=== PATIENT | female | born 1960 | race Caucasian/White ===

== ENCOUNTER 2016-06-18 15:11 | Inpatient (IN) | payer BC ==
[~2016-06-18] VITALS: Ht 172.7 cm; Wt 109.8 kg
[2016-06-18] MEDS ORDERED: IV NS 0.9% 500 ML BAG IV ONE (15:30)
[2016-06-18] MEDS ORDERED: IV NS 0.9% 500 ML IV ONE (15:34)
[2016-06-18 15:51] LABS: BASOPHILS # (AUTO) 0.2 /CMM (0.0-0.2); BASOPHILS % (AUTO) 2.8 % (0.0-2.0); EOSINOPHILS % (AUTO) 0.4 % (0.0-6.0); HEMATOCRIT 42 % (33-45); HEMOGLOBIN 13.9 g/dL (11.5-14.8); LYMPHOCYTES # (AUTO) 1.4 /CMM (0.8-4.8); LYMPHOCYTES % (AUTO) 18.6 % (20.0-44.0); MEAN CORPUSCULAR HEMOGLOBIN 32 PG (26.0-33.0); MEAN CORPUSCULAR HGB CONC 33 g/dl (31.0-36.0); MEAN CORPUSCULAR VOLUME 98 fL (82-100); MONOCYTES # (AUTO) 0.6 /CMM (0.1-1.30); MONOCYTES % (AUTO) 7.5 % (2.0-12.0); NEUTROPHILS # (AUTO) 5.3 /CMM (1.8-8.9); NEUTROPHILS % (AUTO) 70.7 % (43.0-81.0); PLATELET COUNT (AUTO) 184 /CMM (150-450); RDW COEFFICIENT OF VARIATION 16.2 (11.5-15.0); RED BLOOD CELL COUNT(AUTO) 4.32 MIL/uL (4.0-5.2); WHITE BLOOD COUNT (AUTO) 7.5 K/uL (4.3-11.0)
[2016-06-18 16:02] LABS: CALCIUM, SERUM 8.2 mg/dL (8.5-10.1); CARBON DIOXIDE 33 mmol/L (21-32); CHLORIDE 90 mmol/L (98-107); CREATININE 1.3 mg/dL (0.6-1.3); GFR 42 mL/min (>60); GLUCOSE 129 mg/dL (74-106); SODIUM SERUM 136 mmol/L (136-145); UREA NITROGEN, BLOOD 12 mg/dL (7-18)
[2016-06-18 16:05] LABS: INR 1.12 (0.87-1.13); PROTHROMBIN TIME 11.8 SECS (9.5-12.7)
[2016-06-18 16:09] LABS: TROPONIN I < 0.017 ng/mL (0.00-0.056)
[2016-06-18 16:11] LABS: POTASSIUM 2.2 mmol/L (3.5-5.1)
[2016-06-18] MEDS ORDERED: IV SET PRIMARY PUMP SET 1 EA INFUS.SET MC ONE ×2 (16:24→21:16)
[2016-06-18] MEDS ORDERED: POTASSIUM CHLORIDE 20 MEQ TAB.PRT.SR PO ONE ×2 (16:24→16:30)
[2016-06-18] MEDS ORDERED: POTASSIUM CL. PREMIX PERIPHER. 100 ML ONE (16:24)
[2016-06-18] MEDS: POTASSIUM CL. PREMIX PERIPHER. 50 ML IV SCH ×2 (16:34→17:15)
[2016-06-18] MEDS ORDERED: IV NS 0.9% 1,000 ML IV PRN (16:52)
[2016-06-18] MEDS ORDERED: ZOLPIDEM TARTRATE 5 MG TABLET PO PRN (17:00)
[2016-06-18] MEDS ORDERED: LORAZEPAM INJ 2 MG/ML VIAL IV PRN (17:00)
[2016-06-18] MEDS ORDERED: MAG HYDROX/AL HYDROX/SIMETH 30 ML UDC PO PRN ×2 (17:00→19:45)
[2016-06-18] MEDS ORDERED: ACETAMINOPHEN 325 MG TABLET PO PRN ×2 (17:00→19:45)
[2016-06-18] MEDS ORDERED: HYDROCODONE/APAP 5/325MG 1 EACH TABLET PO PRN ×2 (17:00→19:45)
[2016-06-18] MEDS ORDERED: Z GUARD REMEDY 2 OZ OINT TP PRN ×2 (17:00→19:45)
[2016-06-18] MEDS ORDERED: MAGNESIUM HYDROXIDE 30 ML UDC PO PRN ×2 (17:00→19:45)
[2016-06-18] MEDS ORDERED: ONDANSETRON HCL/PF 4 MG/2 ML VIAL IVP PRN ×2 (17:00→19:45)
[2016-06-18] MEDS ORDERED: LORAZEPAM INJ 2 MG/ML VIAL ONE (17:19)
[2016-06-18] MEDS ORDERED: ONDA4TAB5 PO (17:26)
[2016-06-18] MEDS ORDERED: AMLO5TAB2 PO (17:26)
[2016-06-18] MEDS ORDERED: LORAZEPAM INJ 2 MG/ML VIAL IV ONE (17:30)
[2016-06-18] MEDS ORDERED: LEVETIRACETAM (500MG) 500 MG in IV NS 0.9% 100 ML IV SCH (17:30)
[2016-06-18 20:00] VITALS: BP 151/95
[2016-06-18] MEDS: ZOLPIDEM TARTRATE 5 MG TABLET PO PRN (21:23)
[2016-06-18] MEDS: IV NS 0.9% 1,000 ML IV PRN (21:23)
[2016-06-19] VITALS (7 sets, daily range): BP systolic 118–144; BP diastolic 64–90
[2016-06-19] MEDS: IV NS 0.9% 1,000 ML IV PRN ×2 (04:21→23:54)
[2016-06-19 06:19] LABS: CALCIUM, SERUM 7.3 mg/dL (8.5-10.1); CREATININE 0.6 mg/dL (0.6-1.3)
[2016-06-19 06:30] LABS: POTASSIUM 2.6 mmol/L (3.5-5.1)
[2016-06-19] MEDS ORDERED: POTASSIUM CL. PREMIX PERIPHER. 50 ML IV SCH (07:00)
[2016-06-19] MEDS ORDERED: POTASSIUM CHLORIDE 20 MEQ TAB.PRT.SR PO ONE (07:00)
[2016-06-19] MEDS ORDERED: PANTOPRAZOLE 40 MG TABLET.DR PO SCH (07:30)
[2016-06-19] MEDS ORDERED: IV SET PRIMARY PUMP SET 1 EA INFUS.SET MC ONE ×3 (08:33→23:50)
[2016-06-19] MEDS: PANTOPRAZOLE 40 MG TABLET.DR PO SCH (08:43)
[2016-06-19 10:35] LABS: ALBUMIN 2.8 g/dL (3.4-5.0); BILIRUBIN,DIRECT 0.9 mg/dL (0.0-0.2); BILIRUBIN,TOTAL 1.9 mg/dL (0.2-1.0); MAGNESIUM 1.3 mg/dL (1.8-2.4); PHOSPHORUS 2.3 mg/dL (2.5-4.9); TOTAL PROTEIN, SERUM 5.5 g/dL (6.4-8.2)
[2016-06-19 10:41] LABS: TROPONIN I 0.02 ng/mL (0.00-0.056)
[2016-06-19 10:46] LABS: THYROID STIMULATING HORMONE 2.621 uIU/mL (0.358-3.74)
[2016-06-19] MEDS: POTASSIUM CHLORIDE 20 MEQ TAB.PRT.SR PO SCH ×3 (11:02→13:06)
[2016-06-19] MEDS: Potassium Chloride 10 MEQ, LIDOCAINE HCL/PF 1% 1 ML in IV D5W 50 ML IV SCH ×2 (11:53→13:06)
[2016-06-19] MEDS: LORAZEPAM INJ 2 MG/ML VIAL IV PRN ×2 (13:58→20:43)
[2016-06-19] MEDS ORDERED: GADOVERSETAMIDE 5 MMOL/10 ML VIAL IJ ONE (16:32)
[2016-06-19] MEDS ORDERED: K PHOS NEUTRAL 250 MG TABLET PO ONE (17:00)
[2016-06-19] MEDS: ZOLPIDEM TARTRATE 5 MG TABLET PO PRN (21:33)
[2016-06-19] MEDS ORDERED: Magnesium 1GM/D5W 100ML PREMIX PIGGYBACK IV ONE (23:30)
[2016-06-19] MEDS ORDERED: Magnesium 1GM/D5W 100ML PREMIX 200 ML IV ONE (23:35)
[2016-06-19] MEDS ORDERED: SECONDARY IV SET 1 EA INFUS.SET MC ONE (23:52)
[2016-06-20] VITALS: BP 117/81
[2016-06-20] MEDS: LORAZEPAM INJ 2 MG/ML VIAL IV PRN ×3 (03:37→18:39)
[2016-06-20 04:00] VITALS: BP 132/83
[2016-06-20 06:32] LABS: BASOPHILS % (AUTO) 0.2 % (0.0-2.0); EOSINOPHILS # (AUTO) 0.1 /CMM (0.0-0.7); EOSINOPHILS % (AUTO) 1.3 % (0.0-6.0); HEMATOCRIT 33 % (33-45); HEMOGLOBIN 11.1 g/dL (11.5-14.8); LYMPHOCYTES # (AUTO) 1.3 /CMM (0.8-4.8); LYMPHOCYTES % (AUTO) 27.2 % (20.0-44.0); MEAN CORPUSCULAR HEMOGLOBIN 33 PG (26.0-33.0); MEAN CORPUSCULAR HGB CONC 34 g/dl (31.0-36.0); MEAN CORPUSCULAR VOLUME 97 fL (82-100); MONOCYTES # (AUTO) 0.5 /CMM (0.1-1.30); MONOCYTES % (AUTO) 10.2 % (2.0-12.0); NEUTROPHILS # (AUTO) 2.9 /CMM (1.8-8.9); NEUTROPHILS % (AUTO) 61.1 % (43.0-81.0); PLATELET COUNT (AUTO) 102 /CMM (150-450); RDW COEFFICIENT OF VARIATION 17.2 (11.5-15.0); RED BLOOD CELL COUNT(AUTO) 3.39 MIL/uL (4.0-5.2); WHITE BLOOD COUNT (AUTO) 4.7 K/uL (4.3-11.0)
[2016-06-20 06:49] LABS: ALANINE AMINOTRANSFERASE 91 U/L (12-78); ALBUMIN 2.7 g/dL (3.4-5.0); ALKALINE PHOSPHATASE 90 U/L (46-116); ASPARTATE AMINOTRANSFERASE 272 U/L (15-37); CALCIUM, SERUM 7.4 mg/dL (8.5-10.1); CARBON DIOXIDE 33 mmol/L (21-32); CHLORIDE 99 mmol/L (98-107); CREATININE 0.5 mg/dL (0.6-1.3); GFR 128 mL/min (>60); GLUCOSE 90 mg/dL (74-106); MAGNESIUM 1.8 mg/dL (1.8-2.4); PHOSPHORUS 2.5 mg/dL (2.5-4.9); SODIUM SERUM 141 mmol/L (136-145); TOTAL PROTEIN, SERUM 5.5 g/dL (6.4-8.2); UREA NITROGEN, BLOOD 10 mg/dL (7-18)
[2016-06-20 06:50] LABS: TROPONIN I < 0.017 ng/mL (0.00-0.056)
[2016-06-20 07:00] VITALS: BP 140/82
[2016-06-20 07:09] LABS: POTASSIUM 2.3 mmol/L (3.5-5.1)
[2016-06-20 08:00] VITALS: BP 136/75
[2016-06-20] MEDS: PANTOPRAZOLE 40 MG TABLET.DR PO SCH (08:18)
[2016-06-20] MEDS ORDERED: Potassium Chloride 20 MEQ in IV NS 0.9% 1,000 ML IV PRN (09:30)
[2016-06-20] MEDS: POTASSIUM CHLORIDE 20 MEQ TAB.PRT.SR PO SCH ×5 (10:41→15:34)
[2016-06-20 12:00] VITALS: BP 132/78
[2016-06-20 16:00] VITALS: BP 128/83
[2016-06-20] MEDS ORDERED: QUETIAPINE FUMARATE 100 MG TABLET PO SCH (22:00)
[2016-06-21] VITALS: BP 131/65
[2016-06-21 04:00] VITALS: BP 156/84
[2016-06-21] MEDS: LORAZEPAM INJ 2 MG/ML VIAL IV PRN (05:12)
[2016-06-21 07:28] VITALS: BP 138/71
[2016-06-21 07:30] LABS: BASOPHILS % (AUTO) 0.4 % (0.0-2.0); EOSINOPHILS # (AUTO) 0.1 /CMM (0.0-0.7); EOSINOPHILS % (AUTO) 1.1 % (0.0-6.0); HEMATOCRIT 35 % (33-45); HEMOGLOBIN 11.6 g/dL (11.5-14.8); LYMPHOCYTES # (AUTO) 1.4 /CMM (0.8-4.8); MEAN CORPUSCULAR HEMOGLOBIN 33 PG (26.0-33.0); MEAN CORPUSCULAR HGB CONC 34 g/dl (31.0-36.0); MEAN CORPUSCULAR VOLUME 98 fL (82-100); MONOCYTES # (AUTO) 0.7 /CMM (0.1-1.30); MONOCYTES % (AUTO) 11.9 % (2.0-12.0); NEUTROPHILS # (AUTO) 3.5 /CMM (1.8-8.9); NEUTROPHILS % (AUTO) 61.6 % (43.0-81.0); PLATELET COUNT (AUTO) 121 /CMM (150-450); RDW COEFFICIENT OF VARIATION 17.2 (11.5-15.0); RED BLOOD CELL COUNT(AUTO) 3.53 MIL/uL (4.0-5.2); WHITE BLOOD COUNT (AUTO) 5.7 K/uL (4.3-11.0)
[2016-06-21 07:43] LABS: ALBUMIN 2.7 g/dL (3.4-5.0); BILIRUBIN,TOTAL 2.1 mg/dL (0.2-1.0); CREATININE 0.5 mg/dL (0.6-1.3); MAGNESIUM 1.5 mg/dL (1.8-2.4); PHOSPHORUS 2.6 mg/dL (2.5-4.9); POTASSIUM 3.1 mmol/L (3.5-5.1); TOTAL PROTEIN, SERUM 5.9 g/dL (6.4-8.2)
[2016-06-21 08:00] VITALS: BP 150/80
[2016-06-21] MEDS ORDERED: SECONDARY IV SET 1 EA INFUS.SET MC ONE (08:29)
[2016-06-21] MEDS: POTASSIUM CHLORIDE 20 MEQ TAB.PRT.SR PO SCH ×5 (08:43→13:13)
[2016-06-21] MEDS: PANTOPRAZOLE 40 MG TABLET.DR PO SCH (08:43)
[2016-06-21] MEDS: Magnesium 1GM/D5W 100ML PREMIX 100 ML IV SCH ×2 (08:49→10:06)
[2016-06-21 09:22] LABS: IRON, SERUM 110 ug/dl (50-175); TOTAL IRON BINDING CAPACITY 243 ug/dl (250-450)
[2016-06-21] MEDS ORDERED: QUET100T PO (09:48)
[2016-06-21] MEDS ORDERED: POTASSIUM CHLORIDE 20 MEQ TAB.PRT.SR PO ONE (10:00)
[2016-06-21 13:24] LABS: FERRITIN 625 ng/mL (8-388)
[2016-06-24 05:11] LABS: HEPATITIS A AB, IgM Negative (Negative); HEPATITIS A AB, TOTAL Positive (Negative); HEPATITIS B CORE AB, IgM Negative (Negative); HEPATITIS B CORE AB, TOTAL Negative (Negative); HEPATITIS B SURFACE AB Reactive (.); HEPATITIS C VIRUS AB 10.7 s/co ratio (0.0-0.9)
== END 2016-06-21 15:00 | disposition home health service (06) | DRG 101 ==
LOC: ER 15:13 → TELE 20:14
DX: G40.89 Other seizures (principal); E44.0 Moderate protein-calorie malnutrition; E87.6 Hypokalemia; R32 Unspecified urinary incontinence; E66.9 Obesity, unspecified; Z68.36 Body mass index [BMI] 36.0-36.9, adult; I10 Essential (primary) hypertension; M10.9 Gout, unspecified; G31.9 Degenerative disease of nervous system, unspecified; K76.0 Fatty (change of) liver, not elsewhere classified; R16.0 Hepatomegaly, not elsewhere classified; K80.20 Calculus of gallbladder without cholecystitis without obstruction; Z98.84 Bariatric surgery status
CPT/HCPCS: 36415; 70450-TC; 70553-TC; 76700-TC; 80048-TC; 80053-TC; 80074; 80076-TC; 82728-TC; 83540-TC; 83735-TC; 84100-TC; 84439-TC; 84443-TC; 84484-TC; 85025-TC; 85730-TC; 86704; 86706; 86709-TC; 93307-TC; 95819-TC; A4606; A9579; J1953; J2060; J2405; J3475; J3480; J3490; J7030; J7040; J7060; Z7610